=== PATIENT | female | born 1985 | race Caucasian/White ===

== ENCOUNTER 2019-02-23 09:08 | Inpatient (IN) | payer BC ==
[~2019-02-23] VITALS: Ht 165.1 cm; Wt 100.0 kg
[2019-02-23] VITALS (12 sets, daily range): BP systolic 124–150; BP diastolic 79–100; PULSE 80–110; TEMP 97.5–98.6
[~2019-02-23 09:08] MED LIST: MOTRIN 800800 MG/TAB PO; PERCOCET 325 MG1 TA2 PO; PRENATAL1 TA1 PO; SENOKOT S 50 MG1 TAB PO; ZITHROMAX 250M250 MG PO
--- NOTE | 2019-02-23 09:10 | NUR ---
Patient to LR 3 via wheelchair in a lot of pain and stating she needs to push. Patient onto bed. 12: SVE per Sd MCCOY /+ , Dr. Casillas in and notified. IV started in left hand, blood drawn and to lab. Patient/room set up for delivery and Dr. Casillas at bedside. 13: Patient pushing with . 14: Spontaneous vaginal delivery of head and followed by body. Infant bulb syringed by Dr. casillas. Cord clamped/cut by physician. Cord blood obtained. 17: Spontaneous vaginal delivery of placenta and pitocin bolus started per protocol. Cord gases obtained by physician. Plan of care discussed, pericare done, ice pack to perineum. Patient repositioned and will continue to monitor.
[2019-02-23 09:42] LABS: BASO % 0.3 % (0.0-2.0); EOS # 0.1 (0.0-0.7); EOS % 0.5 % (0-4.0); GRAN # 10.9 (1.4-6.5); GRAN % 73.1 % (42.2-75.2); HEMOGLOBIN 12.2 g/dl (12.5-16.0); LYMPH # 2.6 (1.2-3.4); LYMPH % 17.4 % (20.0-51.0); MEAN CELL VOLUME 89 fl (80.0-100.0); MEAN CORPUSCULAR HEMOGLOBIN 29 pg (27.0-31.0); MEAN CORPUSCULAR HGB CONC 33 g/dl (33.0-37.0); MEAN PLATELET VOLUME 11.8 fl (7.4-10.4); MONO # 1.2 (0.1-0.6); MONO % 8.3 % (1.7-9.3); PLATELET COUNT 324 K/mm3 (130-400); RED BLOOD COUNT 4.15 M/mm3 (4.10-5.30); REDCELL DISTRIBUTION WIDTH-CV 14.2 % (11.5-14.5)
[2019-02-23 09:52] LABS: HEMATOCRIT 36.9 % (37.0-47.0)
[2019-02-23] MEDS ORDERED: TYLENOL 500MG500 MG PO (09:55)
[2019-02-23] MEDS ORDERED: SUDAFED30 MG PO (09:55)
[2019-02-24 04:07] VITALS: BP 138/69; PULSE 72; TEMP 98.4
[2019-02-24 06:55] VITALS: BP 133/96; PULSE 16; PULSE 93; TEMP 97.8
[2019-02-24 16:15] VITALS: BP 139/88; PULSE 84; TEMP 97.9
[2019-02-24 21:20] VITALS: BP 139/94; PULSE 83
[2019-02-24 23:30] VITALS: BP 132/85; PULSE 81
[2019-02-25 07:32] VITALS: BP 114/79; PULSE 78; TEMP 98.1
[2019-02-25] MEDS ORDERED: MOTRIN 800800 MG/TAB PO (08:40)
--- NOTE | 2019-02-25 12:28 | NUR ---
Initial visit; Patient thanked Hospital Insurance Clerk for offering congratulations for the of her son. Hospital Insurance Clerk thanked family for choosing [facility].
== END 2019-02-25 12:45 | disposition home or self-care (01) | DRG 807 ==
LOC: LDRO 09:08 → LDR 09:09 → OB 11:30
PROVIDERS: ADMIT Obstetrics & Gynecology
PROC: 10E0XZZ Delivery of Products of Conception, External Approach (ICD-10-PCS; principal; 2019-02-23)
DX: O60.14X0 Preterm labor third trimester with preterm delivery third trimester, not applicable or unspecified (principal); Z37.0 Single live birth; Z3A.36 36 weeks gestation of pregnancy; O99.824 Streptococcus B carrier state complicating childbirth; O26.893 Other specified pregnancy related conditions, third trimester; Z67.91 Unspecified blood type, Rh negative
CPT/HCPCS: J2590; J2791